=== PATIENT | male | born 1980 ===

== ENCOUNTER 2016-06-10 04:22 | Emergency (ER) | payer SELFPAY ==
[~2016-06-10] VITALS: Ht 180.3 cm; Wt 130.0 kg
[2016-06-10 04:23] VITALS: Ht 180.3 cm; Wt 130.0 kg
[2016-06-10] MEDS ORDERED: IBUP-1542 PO (04:48)
[2016-06-10] MEDS ORDERED: NPH10OT LEFT EAR (04:48)
--- NOTE | 2016-06-10 05:02 | ERD ---
ER Documentation Chief Complaint Date/Time DATE: 06/10/16 TIME: 04:56 Chief Complaint left earache x 1 week HPI 34-year-old male presents to emergency department for complains of left ear pain started one week ago, patient described the pain as throbbing pain, 6/10, accompanied with muffled hearing. Patient denies any ear discharge. Patient denies any trauma in the ear. Patient denies any fever or chills. ROS All systems reviewed and are negative except as per history of present illness. Medications Home Meds Active Scripts Ibuprofen* (Motrin*) 600 Mg Tab, 600 MG PO Q6H Y for PAIN AND OR ELEVATED TEMP, #30 TAB Prov:GABE NEELY [employer] HEL[employer] 06/10/16 Neomycin/Polymyxin/Hydrocort* (Cortisporin* Otic) 10 Ml Susp, 4 DROP LEFT EAR QID for 7 Days, EA Prov:GABE NEELY [employer]ING HEL[employer] 06/10/16 Allergies Allergies: Coded Allergies: No Known Drug Allergies (Verified Allergy, Unknown, 06/10/16) PMhx/Soc Hx Cardiac Disorders: Yes (htn) Hx Alcohol Use: No Hx Substance Use: No Hx Tobacco Use: No Smoking Status: Never smoker FmHx Family History: No coronary disease, No diabetes, No other Physical Exam Vitals Vital Signs Date Time Temp Pulse Resp B/P Pulse Ox O2 Delivery O2 Flow Rate FiO2 06/10/16 04:23 92 20 179/86 98 Physical Exam GENERAL: The patient is well developed and appropriate for usual state of health, in no apparent distress. HEENT: Atraumatic. Ears: Normal tympanic membrane, no erythema or bulging. No right ear canal swelling. No right ear discharge. Left ear canal edematous, swollen, with serous discharge.. Nose: normal nasal turbinates, no erythema or swelling. Normal nasal discharge. Throat: oropharynx clear. No tonsillar swelling or tonsillar exudates. No lymphadenopathy. CHEST: Clear to auscultation bilaterally. There are no rales, wheezes or rhonchi. HEART: Regular rate and rhythm. No murmurs, clicks, rubs or gallops. No S3 or S4. ABDOMEN: Soft, nontender and nondistended. Good bowel sounds. No rebound or guarding. No gross peritonitis. No gross organomegaly or masses. No Zuniga sign or McBurney point tenderness. BACK: No midline or flank tenderness. EXTREMITIES: Equal pulses bilaterally. There is no peripheral clubbing, cyanosis or edema. No focal swelling or erythema. Full range of motion. Grossly neurovascularly intact. NEURO: Alert and oriented. Cranial nerves 2-12 intact. Motor strength in all 4 extremities with 5/5 strength. Sensation grossly intact. Normal speech and gait. SKIN: There is no apparent rash or petechia. The skin is warm and dry. HEMATOLOGIC AND LYMPHATIC: There is no evidence of excessive bruising or lymphedema. No gross cervical, axillary, or inguinal lymphadenopathy. Procedures/MDM Medical Decision making: Patient symptoms like it consistent with otitis externa , no symptoms of otitis media or mastoiditis. No foreign body in the ear. No symptoms of sepsis at this time. Patient appears well and is hemodynamically stable. No symptoms of any cellulitis. Patient was given for Corticosporin otic drops, ibuprofen, is advised to follow-up with primary care doctor in 2-3 days for reevaluation of symptoms. Patient was advised to return to emergency department for any worsening symptoms. Departure Diagnosis: Primary Impression: Left otitis externa Otitis externa type: unspecified type Chronicity: acute Qualified Code: H60.502 - Acute otitis externa of left ear, unspecified type Condition: Stable Patient Instructions: External Ear Infection (Adult) GABE NEELY NP Jun 10, 2016 05:02
== END 2016-06-10 05:12 | disposition home or self-care (01) ==
LOC: FTE 04:22
DX: H60.502 Unspecified acute noninfective otitis externa, left ear (principal); I10 Essential (primary) hypertension
CPT/HCPCS: 99283